=== PATIENT | female | born 1995 | race Caucasian/White ===

== ENCOUNTER 2021-03-08 21:04 | Emergency (ER) | payer MEDICAID ==
[~2021-03-08] VITALS: Ht 160 cm; Wt 99.8 kg
[2021-03-08 21:05] VITALS: BP 112/65
--- NOTE | 2021-03-08 21:08 | NUR ---
TO LOBBY A/W BED AMBULATORY
[2021-03-08] MEDS ORDERED: diphenhydrAMINE 50 MG/ML VIAL IM ONE (21:40)
[2021-03-08] MEDS ORDERED: methylPREDNISolone SS 125 MG in WATER STERILE 2 ML IM ONE (21:40)
[2021-03-08] MEDS ORDERED: PRED20TA5 PO (21:42)
[2021-03-08] MEDS ORDERED: EPIN1KIT31 IM (21:42)
[2021-03-08] MEDS ORDERED: FAMOTIDINE 20 MG TAB PO ONE (21:45)
[2021-03-08] MEDS ORDERED: methylPREDNISolone SS 125 MG/2 ML VIAL ONE (23:15)
[2021-03-08] MEDS ORDERED: FAMOTIDINE 20 MG TAB ONE (23:15)
[2021-03-08] MEDS ORDERED: diphenhydrAMINE 50 MG/ML VIAL ONE (23:15)
[2021-03-09 02:32] VITALS: BP 112/65
--- NOTE | 2021-03-09 02:32 | NUR ---
Patient discharged with v/s stable. Written and verbal after care instructions given and explained. Patient verbalized understanding. Ambulatory with steady gait. All questions addressed prior to discharge. Advised to follow up with PMD.
== END 2021-03-09 | disposition home or self-care (01) ==
LOC: MED 21:04
DX: L50.0 Allergic urticaria (principal)
CPT/HCPCS: 96372; 99284; J1200; J2930

== ENCOUNTER 2023-08-17 05:25 | Emergency (ER) | payer MEDICAID ==
[~2023-08-17] VITALS: Ht 160 cm; Wt 93.0 kg
[~2023-08-17 05:25] MED LIST: EPIN1KIT31 IM; PRED20TA5 PO
[2023-08-17 05:37] VITALS: BP 121/82; PULSE 68; RESP 16; TEMP 97.3; O2SAT 99
[2023-08-17 05:47] VITALS: O2SAT 99
[2023-08-17 06:43] LABS: BASOPHILS % (AUTO) 0.7 % (0.0-2.0); EOSINOPHILS # (AUTO) 0.2 K/uL (0-0.4); EOSINOPHILS % (AUTO) 4.8 % (0.0-4.0); HEMATOCRIT 40.4 % (36-48); HEMOGLOBIN 13.5 g/dL (12.0-16.0); LYMPHOCYTES # (AUTO) 1.9 K/uL (2.5-16.5); LYMPHOCYTES % (AUTO) 37.5 % (20.5-51.1); MEAN CORPUSCULAR HEMOGLOBIN 30 pg (27-31); MEAN CORPUSCULAR HGB CONC 33 g/dL (33-37); MONOCYTES # (AUTO) 0.4 K/uL (0.8-1.0); MONOCYTES % (AUTO) 8.7 % (1.7-9.3); NEUTROPHILS # (AUTO) 2.4 K/uL (1.8-7.7); NEUTROPHILS % (AUTO) 48.3 % (42.2-75.2); PLATELET COUNT (AUTO) 204 K/uL (140-450); RED BLOOD CELL COUNT(AUTO) 4.49 MIL/uL (4.20-5.40); RED CELL DISTRIBUTION WIDTH 13.4 % (11.6-13.7)
[2023-08-17 07:36] LABS: BILIRUBIN,URINE NEGATIVE (NEGATIVE); BLOOD, URINE 3+ (NEGATIVE); LEUKOCYTE ESTERASE ,URINE TRACE (NEGATIVE); NITRITE, URINE NEGATIVE (NEGATIVE); PROTEIN,URINE 1+ (NEGATIVE); UGLUCOSE NEGATIVE (NEGATIVE); UROBILINOGEN,URINE 0.2 EU/dL (0.2 - 1)
[2023-08-17 07:38] LABS: APPEARANCE,URINE HAZY (CLEAR); COLOR,URINE RED (YELLOW)
[2023-08-17 07:52] LABS: RBC,URINE >100 /HPF (0-5); WBC,URINE 0-5 /HPF (0-5)
[2023-08-17 07:53] LABS: BACTERIA,URINE 0-2 /HPF (None Seen); MUCUS,URINE 2+ /LPF (None Seen); SQUAMOUS EPITHELIAL CELL,UR 4-10 (MOD) /LPF (0-3 (FEW))
[2023-08-17 09:00] VITALS: BP 107/54; PULSE 64; RESP 18; TEMP 97.3; O2SAT 98
== END 2023-08-17 09:00 | disposition home or self-care (01) ==
LOC: MED 05:25
DX: O03.9 Complete or unspecified spontaneous abortion without complication (principal); Z79.899 Other long term (current) drug therapy
CPT/HCPCS: 36415; 76817; 81001; 84702; 85025; 86900; 86901; 99284; Q0092